=== PATIENT | female | born 1995 | race Caucasian/White ===

== ENCOUNTER 2017-01-18 20:37 | Outpatient (CLI) | payer MEDICAID ==
[~2017-01-18] VITALS: Ht 157.5 cm; Wt 77.1 kg
[~2017-01-18 20:37] MED LIST: METO10TA92 PO
[2017-01-18 20:58] VITALS: Ht 157.5 cm; Wt 77.1 kg
[2017-01-18] MEDS ORDERED: PREN1TAB79 PO (20:58)
[2017-01-18 20:59] VITALS: BP 100/65; PULSE 76; RESP 18
[2017-01-18] MEDS ORDERED: TERBUTALINE 1 MG/ML INJ SC ONE (21:30)
[2017-01-18] MEDS ORDERED: LACTATED RINGER'S 1,000 ML IV ONE (21:30)
[2017-01-18] MEDS ORDERED: LACTATED RINGER'S 1,000 ML IV* SCH (22:00)
[2017-01-18 22:01] LABS: ADD SCAN DIFF NO
[2017-01-18 22:04] LABS: BASOPHILS % 0.2 % (0.0-2.0); EOSINOPHILS # 0.1 10^3/ul (0.0-0.5); HEMATOCRIT 29.8 % (37.0-47.0); HEMOGLOBIN 10.1 g/dl (12.0-16.0); LYMPHOCYTES # 1.8 10^3/ul (0.8-2.9); LYMPHOCYTES % 20.4 % (15.0-51.0); MEAN CORPUSCULAR HEMOGLOBIN 29.4 pg (29.0-33.0); MEAN CORPUSCULAR HGB CONC 33.9 g/dl (32.0-37.0); MEAN CORPUSCULAR VOLUME 86.6 fl (82.0-101.0); MEAN PLATELET VOLUME 11.6 fl (7.4-10.4); MONOCYTE # 0.5 10^3/ul (0.3-0.9); MONOCYTES % 5.5 % (0.0-11.0); NEUTROPHIL # 6.4 10^3/ul (1.6-7.5); NEUTROPHILS % 72.3 % (39.0-77.0); PLATELET COUNT 334 10^3/UL (140-415); RED BLOOD COUNT 3.44 10^6/ul (4.20-5.40); RED CELL DISTRIBUTION WIDTH 12.7 % (11.5-14.5); WHITE BLOOD COUNT 8.9 10^3/ul (4.8-10.8)
[2017-01-18 22:05] LABS: ADD UMIC YES; URINE BILIRUBIN (Dip) NEGATIVE (NEGATIVE); URINE BLOOD (Dip) NEGATIVE (NEGATIVE); URINE COLOR LT. YELLOW (YELLOW); URINE GLUCOSE (Dip) NEGATIVE (NEGATIVE); URINE KETONES (Dip) NEGATIVE (NEGATIVE); URINE LEUKOCYTE ESTERASE (Dip) 1+ (NEGATIVE); URINE NITRITE (Dip) POSITIVE (NEGATIVE); URINE TOTAL PROTEIN (Dip) NEGATIVE (NEGATIVE); URINE UROBILINOGEN (Dip) 0.2 E.U./dL (0.1-1.0)
--- NOTE | 2017-01-18 22:31 | HP ---
Date/Time of Note Date/Time of Note DATE: 01/18/17 TIME: 22:28 OB - History Hx of Present Free Text/Dictation 21 YO with IUP at 31 weeks c/o UCs every 30 minutes. she reports good FM. she denies VB or LOF per vagina. Obstetrical Complications: None Medical Complications: None Past Family/Social History * Past Medical, Surgical, Family and Obstetric Histories reviewed from chart. OB Admission Exam Vital Signs Vital Signs Vital Signs Date Time Temp Pulse Resp B/P Pulse Ox O2 Delivery O2 Flow Rate FiO2 01/18/17 20:59 98.2 76 18 100/65 Room Air Physical Exam HEENT: WNL Heart: Rhythm Normal Lungs: Clear, Equal Abdomen: WNL Extremities: Normal Reflexes: Normal Cervical Dilatation: None Last 72 hours Lab Results CBC & BMP 01/18/17 21:40 OB Assessment/Plan Other Assessment: very unlikely to be in labor. she has a long and closed cervix on sono and she only reports UCs Q 30 min Other plan: may be discharged home with PTL precautions AARON DIANE MD January 18, 2017 22:31
--- NOTE | 2017-01-18 22:44 | RADRPT ---
PROCEDURE: ULTRASOUND OBSTETRICAL CLINICAL INDICATION: 21-year-old female with contractions for cervical length evaluation. TECHNIQUE: Multiple sonographic images of the pelvis were obtained. The images were reviewed on a PACS workstation. COMPARISON: No prior studies are available for comparison. FINDINGS: The cervix is closed with a length of 5.0 cm measured transvaginally. There is a single viable intra uterine gestation. Cardiac activity is present with 154 beats per minute. There is a vertex present ation. The placenta is posterior. There is no evidence for an abruption or placenta previa. IMPRESSION: 1. Single viable intrauterine gestation with vertex presentation. 2. The cervix is closed and measures approximately 5.0 cm in length. .Hector Yancey MD, Date Time Electronically viewed and signed by .Hector Yancey MD, MD on 01/18/2017 22:44 .M/
[2017-01-18 23:12] LABS: SQUAMOUS EPITHELIAL CELL,UR MODERATE; URINE RBCS 0-2 /HPF (0)
[2017-01-18 23:13] LABS: BACTERIA,URINE FEW
--- NOTE | 2017-01-19 02:57 | TRIAGE ---
OB Triage Datetime Report Generated by CPN: 01/19/2017 02:56 Datetime: 01/18/2017 23:50 Stage of : OB Triage Assessment Type: Triage Datetime: 01/18/2017 23:42 Stage of : OB Triage Labor Evaluation Frequency: Irritability/Occasional Monitor Mode: External Duration (sec)2399: 20-50 Quality: Mild Pattern: Normal: <= 5 Contractions in 10 Minutes Resting Tone Mcdowell: Relaxed Heart Rate FHR Baseline Rate: 130 Monitor Mode: External US FHR Baseline Changes: No Baseline Change Variability: Moderate 6-25 bpm Accelerations: 15X15 Decelerations: None Category: Category I Datetime: 01/18/2017 23:30 Stage of : OB Triage Datetime: 01/18/2017 23:00 Stage of : OB Triage Labor Evaluation Frequency: Irritability/Occasional Monitor Mode: External Duration (sec)2399: 20-50 Quality: Mild Pattern: Normal: <= 5 Contractions in 10 Minutes Resting Tone Mcd[place]: Relaxed Heart Rate FHR Baseline Rate: 130 Monitor Mode: External US FHR Baseline Changes: No Baseline Change Variability: Moderate 6-25 bpm Accelerations: 15X15 Decelerations: None Category: Category I Datetime: 01/18/2017 22:28 Vaginal Exam Dilatation (cms): 0.0 Effacement (%): 0 Station: -4 Exam By: BRENNAN Cortes Membrane Status: Intact Vaginal Bleeding: None Cervix, Consistency: Moderate Cervix, Position: Posterior Datetime: 01/18/2017 22:17 Stage of : OB Triage Datetime: 01/18/2017 22:00 Stage of : OB Triage Labor Evaluation Frequency: Irritability/Occasional Monitor Mode: External Duration (sec)2399: 20-40 Quality: Mild Pattern: Normal: <= 5 Contractions in 10 Minutes Resting Tone Mcdowell: Relaxed Heart Rate FHR Baseline Rate: 130 Monitor Mode: External US Variability: Moderate 6-25 bpm Accelerations: 15X15 Decelerations: None Category: Category I Datetime: 01/18/2017 21:19 Stage of : OB Triage Datetime: 01/18/2017 21:00 Stage of : OB Triage Labor Evaluation Frequency: None noted or palpated Monitor Mode: External Resting Tone Mcdowell: Relaxed Heart Rate FHR Baseline Rate: 135 Monitor Mode: External US Variability: Moderate 6-25 bpm Accelerations: 15X15 Decelerations: None Category: Category I Datetime: 01/18/2017 20:52 EGA: 30.6 Datetime: 01/18/2017 20:51 Stage of : OB Triage Assessment Type: Triage Time of Arrival: 01/18/2017 20:31 Arrived By: Wheelchair Arrived From: Home Chief Complaint: UCs [id number] Movement: Present Contractions: Irregular Time Contractions Began: 01/18/2017 16:00 Contractions: [id number] Rupture of Membranes: Denies Vaginal Bleeding: None Vaginal Discharge: Denies Abdominal Trauma: Not Applicable Patient Complaints: Contractions; Cramping; Back Pain Time Provider Notified: 01/18/2017 21:19 Provider Notified: Initial Plan: EFM x2 Maternal Assessment Level of Consciousness: Fully Conscious DTR's/Clonus: DTRs 2+; No Clonus Headache: Temporal; Bilateral; Frontal Blurred Vision: No Respiratory Effort: Unlabored; Regular Rhythm; Equal Expansion Breath Sounds, Left: Clear and Equal Breath Sounds, Right: Clear and Equal Nausea/Vomiting: Present (Annotations: Nausea only) RUQ Epigastric Pain: Denies Lower Extremities Edema: None Degree: None Upper Extremities Edema: None Degree: None Facial Edema: None Temperature Route: Oral Fall Risk Assessment History of Falling: (0) No Secondary Diagnosis: (0) No Ambulatory Aid: (0) Bedrest/Nurse Assist IV Therapy: (0) No Gait: (0) Normal/Bedrest/Immobile Mental Status: (0) Oriented to Own Ability Fall Score: 0 Fall Risk Score Definition: No Risk: No action required Pain Assessment Pain Scale: 5 Pain Presence: Intermittent Pain Type: Cramping; Contraction Pain Location: Abdomen; Back Pain Relief Measures: Comfort Measures Datetime: 01/18/2017 20:49 Stage of : OB Triage Monitor Mode: External Contraction Comments: Mcdowell applied Comments: EFM applied
== END 2017-01-19 00:05 | disposition home or self-care (01) ==
LOC: OBT 20:37 → L-D 20:39 → OBT 01-19 00:05
PROVIDERS: ATTEND Obstetrics & Gynecology
DX: O62.9 Abnormality of forces of labor, unspecified (principal); Z3A.31 31 weeks gestation of pregnancy
CPT/HCPCS: 76817; 81001; 81003; 85025; J3105; J7120; 36415; 96360; 96361; 96372; G0463

== ENCOUNTER 2017-02-09 21:16 | Outpatient (CLI) | payer MEDICAID ==
[~2017-02-09] VITALS: Ht 165.1 cm; Wt 77.5 kg
[~2017-02-09 21:16] MED LIST changes: -METO10TA92 PO; +PREN1TAB79 PO
[2017-02-09 21:36] VITALS: BP 117/68; PULSE 66; RESP 18; Ht 165.1 cm; Wt 77.5 kg
--- NOTE | 2017-02-09 22:32 | RADRPT ---
PROCEDURE: Obstetrical ultrasound. CLINICAL INDICATION: , evaluation. Pelvic pain. TECHNIQUE: Transabdominal sonographic images of the pelvis are obtained. COMPARISON: 01/18/2017 FINDINGS: Single intrauterine gestation. There is a cephalic presentation. Measurements were made in order to determine age. The results are as follows: BPD = 8.64 cm HC = 30.96 cm AC = 31.78 cm FL = 6.51 cm Heart rate = 161 beats per minute The placenta is right lateral. There is no evidence for an abruption or placenta previa. Ovaries are not visualized. IMPRESSION: Single intrauterine gestation of approximately 34 weeks 5 days by ultrasound criteria. [place] estimated weight = 2552 g; 71 percentile for gestational age of 34 weeks 0 days. RPTAT: AADD .Jak Gonzales MD, Date Time Electronically viewed and signed by .Jak Gonzales MD, MD on 02/09/2017 22:32 .B/
--- NOTE | 2017-02-09 22:35 | RADRPT ---
PROCEDURE: OB ultrasound for biophysical profile CLINICAL INDICATION: Biophysical profile. . TECHNIQUE: Multiple sonographic images of the pelvis were obtained. Transabdominal and transvagin al views are obtained. COMPARISON: 01/18/2017 FINDINGS: Single intrauterine gestation. Presentation: Cephalic. Placenta: Right lateral No evidence of placental abruption. No evidence of placenta previa. breathing movement = 2/2 tone = 2/2 motion = 2/2 KHADIJAH = 2/2 KHADIJAH = 15.1 cm heart rate: 132 beats per minute Cervix is closed as visualized transvaginally measuring 4.17 cm. IMPRESSION: Single intrauterine gestation. Biophysical profile 04/14 RPTAT: AADD .Jak Gonzales MD, MD Date Time Electronically viewed and signed by .Jak Gonzales MD, on 02/09/2017 22:35 .B/
[2017-02-09] MEDS: LACTATED RINGER'S 1,000 ML IV SCH (23:39)
[2017-02-10] LABS: ADD UMIC YES; URINE BILIRUBIN (Dip) NEGATIVE (NEGATIVE); URINE BLOOD (Dip) TRACE (NEGATIVE); URINE COLOR LT. YELLOW (YELLOW); URINE GLUCOSE (Dip) NEGATIVE (NEGATIVE); URINE KETONES (Dip) TRACE (NEGATIVE); URINE LEUKOCYTE ESTERASE (Dip) 3+ (NEGATIVE); URINE NITRITE (Dip) NEGATIVE (NEGATIVE); URINE TOTAL PROTEIN (Dip) TRACE (NEGATIVE); URINE UROBILINOGEN (Dip) 0.2 E.U./dL (0.1-1.0)
[2017-02-10] MEDS: LACTATED RINGER'S 1,000 ML IV SCH (00:07)
[2017-02-10] MEDS ORDERED: TERBUTALINE 1 MG/ML INJ SC ONE ×2 (00:30→01:00)
[2017-02-10 00:32] LABS: BACTERIA,URINE MODERATE; SQUAMOUS EPITHELIAL CELL,UR MANY; URINE RBCS 0-2 /HPF (0)
--- NOTE | 2017-02-10 02:34 | PN ---
Date/Time of Note Date/Time of Note DATE: 02/10/17 TIME: 02:29 OB Subjective Subjective Subjective 21Year-old with SIUP at 34 1/7 weeks presents with a chief complaint of ucs. She has been receiving her care with Dr. Enriquez. She states good movement. She denies nausea, vomiting, shortness of breath, chest pain, and abdominal pain between contractions, headache, visual changes, vaginal bleeding or LOF. OB Objective Objective Objective General: Patient appears well, alert and oriented, NAD, appropriate mood and affect ABD: gravid, soft, non-tender. Back: No CVA tenderness (B/L) LE: No clubbing, cyanosis, edema, thigh or calf tenderness bilaterally FHT: 135 bpm , moderate variability with acceleration, no deceleration-category I Contractions: Q 3-5 min initially, resolved before discharging home OB Assessment/Plan Other plan: 21Year-old with SIUP at 34 1/7 weeks with PTC. She received IVF and 2 dose of terbutaline. UCS stopped. FHR: No sign of metabolic acidosis- Category I Reactive NST. U/A and U/C done. Symptoms and sign of labor, preeclampsia, kick count discussed with patient, she voiced understanding. All of her questions answered. Patient was discharged home in stable condition with the appropriate discharge instructions provided. I would like patient to have close follow-up with her primary physician or outpatient clinic in 1-2 days or return to the ER for worsening symptoms or any other urgent concerns. DEEPIKA RAMIREZ Feb 10, 2017 02:34
[2017-02-10] MEDS ORDERED: LACTATED RINGER'S 1,000 ML IV SCH (23:17)
== END 2017-02-10 01:46 | disposition home or self-care (01) ==
LOC: L-D 21:16 → OBT 21:16
PROVIDERS: ATTEND Obstetrics & Gynecology
DX: O60.03 Preterm labor without delivery, third trimester (principal); R10.2 Pelvic and perineal pain; Z3A.34 34 weeks gestation of pregnancy
CPT/HCPCS: 36415; 76815; 76817; 76818; 81001; 84112; 87086; 96360; 96361; 96372; J3105; J7120; Z7500; G0463

== ENCOUNTER 2017-03-12 02:05 | Outpatient (CLI) | payer MEDICAID ==
[~2017-03-12] VITALS: Ht 157.5 cm; Wt 80.3 kg
[2017-03-12 02:34] VITALS: BP 131/87; PULSE 75; RESP 18
[2017-03-12] MEDS ORDERED: FERR134T PO (02:37)
[2017-03-12] MEDS ORDERED: CALC600T5 PO (02:37)
[2017-03-12 03:07] LABS: ADD UMIC YES; UR ASCORBIC ACID NEGATIVE (NEGATIVE); UR BILIRUBIN (Dip) NEGATIVE (NEGATIVE); UR BLOOD (Dip) NEGATIVE (NEGATIVE); UR CLARITY SLIGHTLY CLOUDY (CLEAR); UR COLOR STRAW (YELLOW); UR GLUCOSE (Dip) NEGATIVE (NEGATIVE); UR KETONES (Dip) NEGATIVE (NEGATIVE); UR LEUKOCYTE ESTERASE (Dip) 3+ Leu/ul (NEGATIVE); UR NITRITE (Dip) NEGATIVE (NEGATIVE); UR RBC 2 /HPF (0-5); UR SPECIFIC GRAVITY (Dip) 1.002 (1.003-1.030); UR SQUAMOUS EPITHELIAL CELL FEW /HPF (FEW); UR TOTAL PROTEIN (Dip) NEGATIVE (NEGATIVE); UR UROBILINOGEN (Dip) NEGATIVE (NEGATIVE)
[2017-03-12 03:14] LABS: ADD SCAN DIFF NO
[2017-03-12 03:17] LABS: BASOPHILS % 0.3 % (0.0-2.0); EOSINOPHILS # 0.1 10^3/ul (0.0-0.5); EOSINOPHILS % 0.8 % (0.0-7.0); HEMATOCRIT 29.4 % (37.0-47.0); HEMOGLOBIN 9.4 g/dl (12.0-16.0); LYMPHOCYTES # 1.9 10^3/ul (0.8-2.9); LYMPHOCYTES % 27.9 % (15.0-51.0); MEAN CORPUSCULAR HEMOGLOBIN 26.3 pg (29.0-33.0); MEAN CORPUSCULAR VOLUME 82.4 fl (82.0-101.0); MONOCYTE # 0.4 10^3/ul (0.3-0.9); MONOCYTES % 6.2 % (0.0-11.0); NEUTROPHIL # 4.3 10^3/ul (1.6-7.5); NEUTROPHILS % 64.3 % (39.0-77.0); PLATELET COUNT 288 10^3/UL (140-415); RED BLOOD COUNT 3.57 10^6/ul (4.20-5.40); RED CELL DISTRIBUTION WIDTH 14.9 % (11.5-14.5); WHITE BLOOD COUNT 6.6 10^3/ul (4.8-10.8)
[2017-03-12 03:29] LABS: INR 0.87; PROTIME 11.8 Sec (12.2-14.2); PT RATIO 0.9
[2017-03-12 03:30] LABS: PARTIAL THROMBOPLASTIN TIME 27.3 Sec (25.0-35.0)
--- NOTE | 2017-03-12 03:42 | RADRPT ---
PROCEDURE: Obstetrical ultrasound, limited. CLINICAL INDICATION: Pelvic pain. TECHNIQUE: Multiple sonographic images of the pelvis were obtained using transabdominal technique . Images were obtained with najera scale and color Doppler. The images were reviewed on a PACS works Proactive Comfortion. COMPARISON: 02/09/2017. FINDINGS: There is a single living intrauterine gestation with the fetus in a vertex presentation. hear t tones of 161 beats per minute are identified. The placenta is right lateral in location, grade 2. There is no evidence of placenta previa or abruption. Measurements were made in order to determine age. The results are as follows: BPD =9.67 cm HC =34.07 cm AC =35.89 cm FL =7.41 cm. Estimated gestational age of approximately 39 weeks and 1 day. The estimated date of delivery is 03/18/2017. The EFW = 3750 +/- 563 grams. Estimated weight percentage equals 84.4%. IMPRESSION: Single viable intrauterine gestation of approximately 39 weeks and 1 day, with an ultrasound CARROLL of 03/18/2017. .Lázaro Cardoso MD, MD Date Time Electronically viewed and signed by .Lázaro Cardoso MD, MD on 03/12/2017 03:41 .T/
--- NOTE | 2017-03-12 03:48 | RADRPT ---
PROCEDURE: Biophysical profile. CLINICAL INDICATION: Pelvic pain. TECHNIQUE: Multiple sonographic images of the pelvis were obtained with transabdominal technique. COMPARISON: 02/09/2017. FINDINGS: There is a single living intrauterine gestation with the fetus in a vertex position. The placenta i s right lateral in location, grade II. heart tones of 132 beats per minute are identified. Th ere is normal amniotic fluid volume with an KHADIJAH of 10.8 cm. breathing movements = 2 Gross body movements = 2 tone = 2 Qualitative AFV = 2 IMPRESSION: Biophysical profile 8 out of 8. .Lázaro Cardoso MD, Date Time Electronically viewed and signed by .Lázaro Cardoso MD, on 03/12/2017 03:47 .T/
[2017-03-12 03:52] LABS: ALBUMIN 4.1 g/dl (3.3-4.9); ALBUMIN/GLOBULIN RATIO 1.41; CALCIUM 8.9 mg/dl (8.4-10.2); CREATININE 0.51 mg/dl (0.44-1.00); POTASSIUM 3.9 mmol/L (3.5-5.1); URIC ACID 5.8 mg/dl (3.1-7.9)
[2017-03-12] MEDS ORDERED: ACETAMINOPHEN 500 MG TAB PO ONE (05:07)
--- NOTE | 2017-03-12 08:09 | TRIAGE ---
OB Triage Datetime Report Generated by CPN: 03/12/2017 08:09 Datetime: 03/12/2017 07:08 Assessment Type: Triage Maternal Assessment Level of Consciousness: Fully Conscious DTR's/Clonus: DTRs 2+; No Clonus Headache: Denies Blurred Vision: No Respiratory Effort: Unlabored; Regular Rhythm; Equal Expansion Breath Sounds, Left: Clear and Equal Breath Sounds, Right: Clear and Equal Nausea/Vomiting: Denies RUQ Epigastric Pain: Denies Lower Extremities Edema: None Degree: None Upper Extremities Edema: None Degree: None Facial Edema: None Fall Risk Assessment History of Falling: (0) No Secondary Diagnosis: (0) No Ambulatory Aid: (0) Bedrest/Nurse Assist IV Therapy: (0) No Gait: (0) Normal/Bedrest/Immobile Mental Status: (0) Oriented to Own Ability Fall Score: 0 Fall Risk Score Definition: No Risk: No action required Datetime: 03/12/2017 06:09 Stage of : OB Triage Labor Evaluation Frequency: 3-5 Monitor Mode: External Duration (sec)2399: 60-90 Quality: Moderate Pattern: Normal: <= 5 Contractions in 10 Minutes Resting Tone [place]: Relaxed Heart Rate FHR Baseline Rate: 130 Monitor Mode: External US FHR Baseline Changes: No Baseline Change Variability: Moderate 6-25 bpm Accelerations: 15X15 Decelerations: None Category: Category I Pain Assessment Pain Scale: 6 Pain Presence: Intermittent Pain Type: Contraction Pain Location: Abdomen Datetime: 03/12/2017 05:29 Heart Rate FHR Baseline Rate: 145 Monitor Mode: External US FHR Baseline Changes: No Baseline Change Variability: Moderate 6-25 bpm Accelerations: 15X15 Datetime: 03/12/2017 04:50 Stage of : OB Triage Monitor Mode: External Quality: Moderate Pattern: Normal: <= 5 Contractions in 10 Minutes Resting Tone [place]: Relaxed Heart Rate FHR Baseline Rate: 135 Monitor Mode: External US Variability: Moderate 6-25 bpm Accelerations: 15X15 Decelerations: None Category: Category I Vaginal Exam Dilatation (cms): 0.0 Exam By: Dr West Membrane Status: Intact Vaginal Bleeding: None Cervix, Consistency: Soft Cervix, Position: Posterior Presentation 'A': Cephalic Datetime: 03/12/2017 03:55 Stage of : OB Triage Monitor Mode: External Quality: Mild Pattern: Normal: <= 5 Contractions in 10 Minutes Resting Tone [place]: Relaxed Heart Rate FHR Baseline Rate: 135 Monitor Mode: External US FHR Baseline Changes: No Baseline Change Variability: Moderate 6-25 bpm Accelerations: 15X15 Decelerations: None Category: Category I Datetime: 03/12/2017 02:53 Stage of : OB Triage Datetime: 03/12/2017 02:50 Stage of : OB Triage Labor Evaluation Frequency: 8-11 Monitor Mode: External Duration (sec)2399: 60 Quality: Moderate Pattern: Normal: <= 5 Contractions in 10 Minutes Resting Tone [place]: Relaxed Heart Rate FHR Baseline Rate: 130 Monitor Mode: External US FHR Baseline Changes: No Baseline Change Variability: Moderate 6-25 bpm Accelerations: 15X15 Decelerations: Variable Category: Category II Vaginal Exam Dilatation (cms): 0.0 Effacement (%): 50 Station: -3 Exam By: E Macho Membrane Status: Intact Vaginal Bleeding: None Cervix, Consistency: Soft Cervix, Position: Posterior Datetime: 03/12/2017 02:25 Time of Arrival: 03/12/2017 02:07 EGA: 38.3 Arrived By: Wheelchair Arrived From: Home Chief Complaint: w/ hx c/s x1 and x1 w/ c/o ucs, nausea, and DICKEY Movement: Present Contractions: Regular Time Contractions Began: 03/11/2017 10:00 Contractions: Q5 Rupture of Membranes: Denies Vaginal Bleeding: None Vaginal Discharge: Denies Recent Sexual Intercouse: Denies Abdominal Trauma: Not Applicable Patient Complaints: Contractions; Headache; Nausea Time Provider Notified: 03/12/2017 02:53 Provider Notified: Dr West Initial Plan: EFM, SVE, PIH PANEL, BPP/EFW Datetime: 02/10/2017 01:51 Stage of : OB Triage Datetime: 02/10/2017 00:59 Labor Evaluation Frequency: IRREGULAR Monitor Mode: External Duration (sec)2399: 50-100 Quality: Mild Pattern: Normal: <= 5 Contractions in 10 Minutes Resting Tone [place]: Relaxed Heart Rate FHR Baseline Rate: 135 Monitor Mode: External US FHR Baseline Changes: No Baseline Change Variability: Moderate 6-25 bpm Accelerations: 15X15 Decelerations: None Category: Category I Datetime: 02/10/2017 00:00 Labor Evaluation Frequency: 2-3 Monitor Mode: External Duration (sec)2399: 100 Quality: Mild Pattern: Normal: <= 5 Contractions in 10 Minutes Resting Tone [place]: Relaxed Heart Rate FHR Baseline Rate: 125 FHR Baseline Changes: No Baseline Change Variability: Moderate 6-25 bpm Accelerations: 15X15 Decelerations: None Category: Category I Datetime: 02/09/2017 23:00 Labor Evaluation Frequency: 3-4 Monitor Mode: External Duration (sec)2399: 60-100 Quality: Mild Pattern: Normal: <= 5 Contractions in 10 Minutes Resting Tone [place]: Relaxed Heart Rate FHR Baseline Rate: 125 FHR Baseline Changes: No Baseline Change Variability: Moderate 6-25 bpm Accelerations: 15X15 Decelerations: None Category: Category I Datetime: 02/09/2017 22:37 Vaginal Exam Dilatation (cms): 0.0 Effacement (%): 0 Station: -3 Exam By: Yossi JOSE RN Vaginal Bleeding: None Cervix, Consistency: Firm Cervix, Position: Posterior Datetime: 02/09/2017 22:00 Labor Evaluation Frequency: 3-4 Monitor Mode: External Duration (sec)2399: 40-80 Quality: Mild Pattern: Normal: <= 5 Contractions in 10 Minutes Resting Tone [place]: Relaxed Heart Rate FHR Baseline Rate: 125 FHR Baseline Changes: No Baseline Change Variability: Moderate 6-25 bpm Accelerations: 15X15 Decelerations: None Category: Category I Datetime: 02/09/2017 21:30 Stage of : OB Triage Time of Arrival: 02/09/2017 21:30 EGA: 34.0 Arrived By: Wheelchair Arrived From: Home Chief Complaint: CONTRACTIONS Movement: Present Rupture of Membranes: Unsure Vaginal Bleeding: None Recent Sexual Intercouse: Denies Abdominal Trauma: Not Applicable Patient Complaints: None (Annotations: Data stored by CPN on behalf of user) Time Provider Notified: 02/09/2017 23:15 Provider Notified: HADADIAN Initial Plan: CALL COREY BETANCUR Maternal Assessment Level of Consciousness: Fully Conscious DTR's/Clonus: DTRs 2+; No Clonus Headache: Denies Blurred Vision: No Respiratory Effort: Unlabored; Regular Rhythm; Equal Expansion Breath Sounds, Left: Clear and Equal Breath Sounds, Right: Clear and Equal Nausea/Vomiting: Denies RUQ Epigastric Pain: Denies Lower Extremities Edema: None Degree: None Upper Extremities Edema: None Degree: None Facial Edema: None Temperature Route: Oral Fall Risk Assessment History of Falling: (0) No Secondary Diagnosis: (0) No Ambulatory Aid: (0) Bedrest/Nurse Assist IV Therapy: (0) No Gait: (0) Normal/Bedrest/Immobile Mental Status: (0) Oriented to Own Ability Fall Score: 0 Fall Risk Score Definition: No Risk: No action required Monitor Mode: External Monitor Mode: External US Pain Assessment Pain Scale: 5 Pain Presence: Intermittent Pain Type: Contraction Pain Location: Abdomen; Back Datetime: 01/18/2017 20:52 EGA: 30.6 Datetime: 01/18/2017 20:51 Fall Score: 0 Fall Risk Score Definition: No Risk: No action required
--- NOTE | 2017-03-12 08:14 | PN ---
Triage Information Date/Time March 12, 2070 OB triage consult Weeks of Gestation This patient is a 21 years old 3 para 2 who had 1 spontaneous vaginal delivery and one . Her estimated date of confinement March 23, 2017 which makes her 38 weeks and 3 days She came to OB triage complaining of contractions nausea and headaches In reviewing her past history as I mentioned she had 2 spontaneous vaginal delivery. Her blood type is O+ GBS positive rubella positive ,hepatic surface antigen and HIV RPR chlamydia and gonorrhea were negative On examination she is a well-developed well-nourished lady at term Her general vital signs are normal except for slightly elevated blood pressure when she came in her Blood pressure was 131/87 and 121/74 , eventually 119/80, pulse rate 75 ,respiration 18 and temperature 97.9 Her abdomen was soft she was having only occasional contractions, heart tone was normal with good variability occasional acceleration no deceleration. On pelvic examination cervix was closed about 50% effaced at -3 station and intact membrane , 4 hours later on tepeated pelvic exam d the findings were unchanged Laboratory Tests Test 03/12/17 02:50 03/12/17 03:03 Urine Color STRAW Urine Clarity SLIGHTLY CLOUDY Urine pH 7.0 Urine Specific [place] 1.002 Urine Ketones NEGATIVEmg/dL Urine Nitrite NEGATIVEmg/dL Urine Bilirubin NEGATIVEmg/dL Urine Urobilinogen NEGATIVEmg/dL Urine Leukocyte Esterase 3+Margo/ul Urine Microscopic RBC 2/HPF Urine Microscopic WBC 15/HPF Urine Squamous Epithelial Cells FEW/HPF Urine Hemoglobin NEGATIVEmg/dL Urine Glucose NEGATIVEmg/dL Urine Total Protein NEGATIVEmg/dl White Blood Count 6.610^3/ul Red Blood Count 3.5710^6/ul Hemoglobin 9.4g/dl Hematocrit 29.4% Mean Corpuscular Volume 82.4fl Mean Corpuscular Hemoglobin 26.3pg Mean Corpuscular Hemoglobin Concent 32.0g/dl Red Cell Distribution Width 14.9% Platelet Count 43705^3/UL Mean Platelet Volume 12.0fl Neutrophils % 64.3% Lymphocytes % 27.9% Monocytes % 6.2% Eosinophils % 0.8% Basophils % 0.3% Nucleated Red Blood Cells % 0.0/100WBC Neutrophils # 4.310^3/ul Lymphocytes # 1.910^3/ul Monocytes # 0.410^3/ul Eosinophils # 0.110^3/ul Basophils # 0.010^3/ul Nucleated Red Blood Cells # 0.010^3/ul Prothrombin Time 11.8Sec Prothrombin Time Ratio 0.9 INR International Normalized Ratio 0.87 Activated Partial Thromboplast Time 27.3Sec Sodium Level 134mmol/L Potassium Level 3.9mmol/L Chloride Level 105mmol/L Carbon Dioxide Level 19mmol/L Anion Gap 14 Blood Urea Nitrogen 8mg/dl Creatinine 0.51mg/dl Glucose Level 81mg/dl Uric Acid 5.8mg/dl Calcium Level 8.9mg/dl Total Bilirubin 0.0mg/dl Direct Bilirubin 0.00mg/dl Indirect Bilirubin 0.0mg/dl Aspartate Amino Transf (AST/SGOT) 58IU/L Alanine Aminotransferase (ALT/SGPT) 39IU/L Alkaline Phosphatase 168IU/L Total Protein 7.0g/dl Albumin 4.1g/dl Globulin 2.90g/dl Albumin/Globulin Ratio 1.41 Current Medications Medications (Trade) Dose Ordered Sig/[place] Route PRN Reason Start Time Stop Time Status Last Admin Dose Admin Acetaminophen (Tylenol Tab) 1,000 mg ONCE ONCE PO 03/12/17 05:07 03/12/17 05:09 DC 03/12/17 05:29 1,000 MG : 2 Para: 1 Objective Vital Signs Date Time Temp Pulse Resp B/P Pulse Ox O2 Delivery O2 Flow Rate FiO2 03/12/17 02:34 97.9 75 18 131/87 Room Air Exam On laboratory studies; her urinalysis were basically normal except for few leukocyte Estrace of 3+,. PT and PTT were normal .electrolytes and liver function tests were basically normal except for slightly elevated SGOT. On CBC exam she was somewhat anemic with hemoglobin of 9.4 hematocrit of a 29.4 platelet was normal 280,000 Results/Medications Result Diagram: 03/12/17 0303 03/12/17 0303 Results 24 hrs Laboratory Tests Test 03/12/17 02:50 03/12/17 03:03 Urine Color STRAW Urine Clarity SLIGHTLY CLOUDY A Urine pH 7.0 Urine Specific [place] 1.002 L Urine Ketones NEGATIVE Urine Nitrite NEGATIVE Urine Bilirubin NEGATIVE Urine Urobilinogen NEGATIVE Urine Leukocyte Esterase 3+ H Urine Microscopic RBC 2 Urine Microscopic WBC 15 H Urine Squamous Epithelial Cells FEW Urine Hemoglobin NEGATIVE Urine Glucose NEGATIVE Urine Total Protein NEGATIVE White Blood Count 6.6 # Red Blood Count 3.57 L Hemoglobin 9.4 L Hematocrit 29.4 L Mean Corpuscular Volume 82.4 Mean Corpuscular Hemoglobin 26.3 L Mean Corpuscular Hemoglobin Concent 32.0 Red Cell Distribution Width 14.9 H Platelet Count 288 Mean Platelet Volume 12.0 H Neutrophils % 64.3 Lymphocytes % 27.9 Monocytes % 6.2 Eosinophils % 0.8 Basophils % 0.3 Nucleated Red Blood Cells % 0.0 Neutrophils # 4.3 Lymphocytes # 1.9 Monocytes # 0.4 Eosinophils # 0.1 Basophils # 0.0 Nucleated Red Blood Cells # 0.0 Prothrombin Time 11.8 L Prothrombin Time Ratio 0.9 INR International Normalized Ratio 0.87 Activated Partial Thromboplast Time 27.3 Sodium Level 134 L Potassium Level 3.9 Chloride Level 105 Carbon Dioxide Level 19 L Anion Gap 14 Blood Urea Nitrogen 8 Creatinine 0.51 Glucose Level 81 Uric Acid 5.8 Calcium Level 8.9 Total Bilirubin 0.0 L Direct Bilirubin 0.00 Indirect Bilirubin 0.0 Aspartate Amino Transf (AST/SGOT) 58 H Alanine Aminotransferase (ALT/SGPT) 39 Alkaline Phosphatase 168 H Total Protein 7.0 Albumin 4.1 Globulin 2.90 Albumin/Globulin Ratio 1.41 Imaging Results On ultrasound study the report was a single living intrauterine gestation in vertex presentation. heart tones 161. placenta right lateral location grade 2 .estimated gestational age was 39 weeks and 1 day..estimated weight was 3750 and estimated weight percentage percentage castro was 84.4% .her biophysical profile was 8/8 with KHADIJAH of 10.8 Assessment/Plan Disposition.. Patient discharged home and recommended to do the kick count and in case of vaginal bleeding, more contractions to return to the hospital end of dictation thank you ARJUN SHARIF MD Mar 12, 2017 08:14
== END 2017-03-12 08:15 | disposition home or self-care (01) ==
LOC: OBT 02:05 → L-D 02:05 → OBT 08:15
PROVIDERS: ATTEND Obstetrics & Gynecology
DX: O62.9 Abnormality of forces of labor, unspecified (principal); O21.0 Mild hyperemesis gravidarum; Z3A.38 38 weeks gestation of pregnancy; O26.893 Other specified pregnancy related conditions, third trimester; R51 Headache
CPT/HCPCS: 36415; 76815; 76818; 80053; 81001; 84560; 85025; 85610; 85730; Z7500; Z7610; G0463

== ENCOUNTER 2017-03-23 07:25 | Inpatient (IN) | payer MEDICAID ==
[~2017-03-23] VITALS: Ht 157.5 cm; Wt 80.3 kg
[~2017-03-23 07:25] MED LIST changes: +CALC600T5 PO; +FERR134T PO
[2017-03-24 14:53] VITALS: Ht 157.5 cm; Wt 80.3 kg
[2017-03-24] MEDS ORDERED: METHYLERGONOVINE 0.2 MG INJ IM PRN ×2 (15:00→22:30)
[2017-03-24] MEDS ORDERED: OXYTOCIN 30 UNITS/LR 500 ML IV PRN ×2 (15:00→22:30)
[2017-03-24] MEDS ORDERED: MISOPROSTOL 200 MCG TAB PR PRN ×2 (15:00→22:30)
[2017-03-24] MEDS ORDERED: CARBOPROST 250 MCG INJ IM PRN ×2 (15:00→22:30)
[2017-03-24] MEDS ORDERED: CEFAZOLIN 2 GM/50 ML (PMX) 50 ML IV SCH ×2 (15:00→22:30)
[2017-03-24] MEDS ORDERED: OXYTOCIN 30 UNITS/LR 500 ML IV SCH (15:00)
[2017-03-24 15:16] LABS: ADD SCAN DIFF NO
[2017-03-24] MEDS: LACTATED RINGER'S 1,000 ML IV SCH ×3 (15:16→23:51)
[2017-03-24 15:19] LABS: BASOPHILS % 0.3 % (0.0-2.0); EOSINOPHILS % 0.4 % (0.0-7.0); HEMATOCRIT 32.6 % (37.0-47.0); HEMOGLOBIN 10.4 g/dl (12.0-16.0); LYMPHOCYTES # 1.7 10^3/ul (0.8-2.9); LYMPHOCYTES % 22.6 % (15.0-51.0); MEAN CORPUSCULAR HEMOGLOBIN 26.2 pg (29.0-33.0); MEAN CORPUSCULAR HGB CONC 31.9 g/dl (32.0-37.0); MEAN CORPUSCULAR VOLUME 82.1 fl (82.0-101.0); MEAN PLATELET VOLUME 12.5 fl (7.4-10.4); MONOCYTE # 0.4 10^3/ul (0.3-0.9); MONOCYTES % 4.9 % (0.0-11.0); NEUTROPHIL # 5.2 10^3/ul (1.6-7.5); NEUTROPHILS % 71.3 % (39.0-77.0); PLATELET COUNT 334 10^3/UL (140-415); RED BLOOD COUNT 3.97 10^6/ul (4.20-5.40); RED CELL DISTRIBUTION WIDTH 15.5 % (11.5-14.5); WHITE BLOOD COUNT 7.3 10^3/ul (4.8-10.8)
[2017-03-24 15:33] LABS: INR 0.89; PT RATIO 0.9
[2017-03-24 15:34] LABS: PARTIAL THROMBOPLASTIN TIME 27.2 Sec (25.0-35.0)
[2017-03-24] MEDS ORDERED: METOCLOPRAMIDE 10 MG INJ ONE (18:03)
[2017-03-24] MEDS ORDERED: FENTAnyl 50 MCG/ML VIAL ONE (18:03)
[2017-03-24] MEDS ORDERED: morphine SULFATE/PF (10 MG/10 ML) INJ ONE (18:03)
[2017-03-24] MEDS ORDERED: PHENYLephrine (100 MCG/ML) 5ML SYG ONE (18:03)
[2017-03-24] MEDS ORDERED: OXYTOCIN 10 UNIT INJ ONE (18:03)
[2017-03-24] MEDS ORDERED: EPHEDrine SULFATE 50 MG/5 ML SYG IV PRN (19:00)
[2017-03-24] MEDS ORDERED: DIPHENHYDRAMINE 50 MG INJ IV PRN ×2 (19:00)
[2017-03-24] MEDS ORDERED: hydrALAzine 20 MG INJ IV PRN (19:00)
[2017-03-24] MEDS ORDERED: FENTAnyl 50 MCG/ML VIAL IV PRN ×3 (19:00)
[2017-03-24] MEDS ORDERED: TRIMETHOBENZAMIDE 100 MG/ML VIAL IM PRN (19:00)
[2017-03-24] MEDS ORDERED: HYDROmorphONE (0.2 MG/ML) 10ML SYG IV PRN ×3 (19:00)
[2017-03-24] MEDS ORDERED: MEPERIDINE 25 MG INJ IV PRN (19:00)
[2017-03-24] MEDS ORDERED: NALOXONE (0.4 MG/ML) INJ IV PRN (19:00)
[2017-03-24] MEDS ORDERED: OXYCODONE/ACETAMINOPHEN (5/325) TAB PO PRN ×2 (19:00)
[2017-03-24] MEDS ORDERED: LABETALOL HCL 20MG INJ IV PRN (19:00)
[2017-03-24] MEDS ORDERED: ONDANSETRON 4 MG INJ IV PRN ×2 (19:00)
[2017-03-24] MEDS ORDERED: FENTAnyl 2MCG/ML-ROPIV 0.2% 100 ML BAG EPI SCH (19:00)
[2017-03-24] MEDS ORDERED: morphine 2 MG INJ IV PRN ×2 (19:00)
[2017-03-24] MEDS ORDERED: MIDAZOLAM 1 MG/ML 2 ML INJ IV PRN (19:00)
[2017-03-24] MEDS ORDERED: DEXAMETHASONE 4 MG/ML 1 ML INJ ONE (19:02)
--- NOTE | 2017-03-24 19:37 | HP ---
Date/Time of Note Date/Time of Note DATE: 03/24/17 TIME: 19:32 OB - History Hx of Present Free Text/Dictation admitted at 40+ weeks gestation requesting repeat C/S Last Menstrual Period: Jun 16, 2016 Estimated Due Date: Mar 23, 2017 : 3 Para: 2 Care: Good Care Ultrasounds: Normal mid trimester US Obstetrical Complications: None Medical Complications: None Other Concerns: Previous section Past Family/Social History * Past Medical, Surgical, Family and Obstetric Histories reviewed from chart. Blood Type: O+ Rubella: immune RPR/VDRL: Negative GBS Status: Unknown HBsAG: Negative OB Admission Exam Physical Exam HEENT: WNL Heart: Rhythm Normal Lungs: Clear, Equal Abdomen: WNL Extremities: Normal Reflexes: Normal Cervical Dilatation: None Effacement: 0% Station: -3 Membranes: Intact Heart Rate: 130's Accelerations: Accelerations Present Decelerations: No Decelerations Varibility: Marked Contractions on Admission: 6-10 Minutes Apart Last 72 hours Lab Results CBC & BMP 03/24/17 14:40 OB Assessment/Plan Reason for admission: section Other Assessment: Term gestation Previous Other plan: Repeat per request JUJU TOMLIN MD Mar 24, 2017 19:36
--- NOTE | 2017-03-24 19:40 | OPR ---
Operative Report Planned Procedure Procedure date Mar 24, 2017 Procedure(s) repeat C/S Performed by: JUJU TOMLIN MD Assisting provider: ARJUN SHARIF MD Anesthesiologist: Shaun Garcia M.D. Pre-procedure diagnosis Term gestation Previous Anesthesia Type: spinal Procedure Description Under satisfactory anaesthesia a Pfannenstiel incision was made two fingerbreadth above and parallel to the symphysis of pubis around the previous scar and previous scar was removed Incision was extended laterally to the border of the Recti muscles on either sides. Incision was carried down with sharp and blunt dissection until fascia was reached. Anterior Recti muscle fascia was incised in mid portion and incision extended laterally to the border of skin incision. Fascia was mobilized from muscle superiorly and Recti muscles were from midline using sharp and blunt dissection. Peritoneum was visualized; Avoiding bowel and bladder it was incised . Incision was extended superiorly and inferiorly. Bladder blade was placed. Posterior peritoneum covering the lower segment of the uterus and lower segment of the uterus were incised.Low transverse uterine incision was made on lower segment of the uterus. Incision extended laterally to the border of Round Lig. on either sides and baby was delivered from OT. position . Amniotic fluid appeared clear. Cord blood was obtained and cord had 3 vessels . Placenta was delivered spontaneously and appeared intact and complete. Intrauterine cavity was rubbed with a laparotomy sponge. Uterine incision was closed in 2 layers using running stitches of No1 Monocryl. Hemostasis appeared secure. Ovaries and Fallopian tubes were within normal limits. Announcing needle, lap sponge and instrument count to be correct abdomen was closed in layers as follows: Peritoneum and Recti muscles with running stitches of 20 Vicryl. Fascia with running stitch of No 1 PDS. Subcutaneous tissue with running stitches of 20 Chromic and skin was closed using jeri. Patient tolerated the procedure well and was transferred to [facility] in good condition. Post-Procedure Post-procedure diagnosis Status post Findings: Live Baby Specimen removed: Yes Complications: None Pt Condition post procedure: stable Disposition: PACU Physician Certification I, the undersigned physician, hereby certify that I have discussed the procedure described in this consent form with this patient (or the patient's legal sales representative printing paper), including: * The risk and benefits of the procedure; * Any adverse reactions that may reasonably be expected to occur; * Any alternative efficacious methods of treatment which may be medically viable ; * The potential problems that may occur during recuperation; * Potential for blood transfusion and associated risks/benefits; and * Any research or economic interest I may have regarding this treatment. I further certify that the patient/legally responsible person was encouraged to ask question and that all questions were answered. JUJU TOMLIN MD Mar 24, 2017 19:40
[2017-03-24] MEDS: KETOROLAC 30 MG INJ IV PRN (20:30)
--- NOTE | 2017-03-24 21:22 | DELSUM ---
Delivery Summary A-C Datetime Report Generated by N: 03/24/2017 21:22 DELIVERY PERSONNEL Refrigeration System Installer: Ellen Sequeira MATERNAL INFORMATION Delivery Anesthesia: Spinal Medications in Delivery: SEE ANESTHESIA NOTE Estimated Blood Loss (ml): 600 Placenta Cultured: No Maternal Complications: None Other Maternal Complications: POST DATE (Annotations: Data stored by [facility] on behalf of user) LABOR SUMMARY EDC: 03/23/2017 00:00 No. Babies in Womb: 1 Attempted: No Labor Anesthesia: None LABOR INFORMATION Reason for Induction: Postterm Oxytocin: N/A Group B Beta Strep: Positive Antibiotics # of Doses: 1 Antibiotics Time of Last Dose: 03/24/2017 18:05 Steroids Given: None Reason Steroids Not Administered: Not Applicable MEMBRANES Membranes Rupture Method: Artificial Rupture of Membranes: 03/24/2017 18:36 Length of Rupture (hr): 0.00 Amniotic Fluid Color: Clear Amniotic Fluid Amount: Small Amniotic Fluid Odor: Normal STAGES OF LABOR Stage 3 hr: 0 Stage 3 min: 1 CSECTION DELIVERY Primary Indication: Repeat Elective CSection Urgency: Elective CSection Incidence: Repeat Labor: No Labor Elective: Elective CSection Incision: Lower Uterine Transverse BABY A INFORMATION Delivery Date/Time: 03/24/2017 18:36 Method of Delivery: Born in Route : No : N/A Forceps: N/A Vacuum Extraction: N/A Shoulder Dystocia : N/A SHOULDER DYSTOCIA BABY A Delivery Date/Time: 03/24/2017 18:36 PRESENTATION/POSITION BABY A Presentation: Cephalic Cephalic Presentation: Vertex Vertex Position: Left Occipital Anterior Breech Presentation: N/A PLACENTA INFORMATION BABY A Placenta Delivery Time : 03/24/2017 18:37 Placenta Method of Delivery: Manual Removal Placenta Status: Delivered SCORES BABY A Heart Rate 1 min: >100 bpm Resp Effort 1 min: Good Cry Reflex Irritability 1 min: Cough/Sneeze/Pulls Away Muscle Tone 1 min: Active Motion Color 1 min: Blue/Pale Resuscitation Effort 1 min: Tactile Stimulation SCORE 1 MIN: 8 Heart Rate 5 min: >100 bpm Resp Effort 5 min: Good Cry Reflex Irritability 5 min: Cough/Sneeze/Pulls Away Muscle Tone 5 min: Active Motion Color 5 min: Body [place], Extremit Blue Resuscitation Effort 5 min: Tactile Stimulation SCORE 5 MIN: 9 INFORMATION BABY A Gestational Age at Delivery: 40.1 Gestational Status: Full Term- 39- 40.6 Weeks Outcome : Liveborn Condition : Stable Sex: Male IDENTIFICATION/MEDS BABY A ID Band Number: [id number] ID Band Location: Right Leg; Left Arm Sensor Applied: Yes Sensor Number: [id number] Sensor Location : Cord Clamp Vitamin K Given : Not Given Erythromycin Given: Not Given WEIGHT/LENGTH BABY A Birthweight (gm): 3740 Infant Weight (lb): 8 Weight (oz): 4 Length (in): 19.50 Length (cm): 49.53 CORD INFORMATION BABY A No. Cord Vessels: 3 Nuchal Cord : N/A Cord Blood Taken: Yes Suction: Mouth; Nose ASSESSMENT BABY A Infant Complications: None Physical Findings at Delivery: Within Normal Limits Respirations: Appears Normal Apprentice/Lineman/ALS Called : Yes Care By: RT Transferred To: Remains with Mother
[2017-03-24] MEDS ORDERED: NA PHOSPHATE/BIPHOS 133 ML ENEMA PR PRN (22:30)
[2017-03-24] MEDS ORDERED: LANOLIN 7 GM TUBE TOP PRN (22:30)
[2017-03-24 23:00] VITALS: BP 139/94; PULSE 65; RESP 18
[2017-03-24 23:49] VITALS: BP 118/79; PULSE 70; RESP 20
[2017-03-24] MEDS: CEFAZOLIN 2 GM/50 ML (PMX) 50 ML IVPB SCH (23:51)
[2017-03-24] MEDS: CLINDAMYCIN 300 MG CAP PO SCH (23:55)
[2017-03-25 04:00] VITALS: BP 111/69; PULSE 95; RESP 18
[2017-03-25] MEDS: CLINDAMYCIN 300 MG CAP PO SCH ×4 (05:50→23:35)
[2017-03-25] MEDS: KETOROLAC 30 MG INJ IV PRN ×3 (05:50→17:35)
[2017-03-25 08:00] VITALS: BP 122/79; PULSE 87; RESP 19
[2017-03-25] MEDS: LACTATED RINGER'S 1,000 ML IV SCH ×2 (08:12→14:26)
[2017-03-25] MEDS: CEFAZOLIN 2 GM/50 ML (PMX) 50 ML IVPB SCH ×2 (08:12→16:14)
[2017-03-25 08:31] LABS: ADD SCAN DIFF NO
[2017-03-25 08:40] LABS: ABNORMAL IP MESSAGE 1; HEMATOCRIT 19.6 % (37.0-47.0); MEAN CORPUSCULAR HEMOGLOBIN 26.9 pg (29.0-33.0); MEAN CORPUSCULAR HGB CONC 33.2 g/dl (32.0-37.0); MEAN PLATELET VOLUME 12.4 fl (7.4-10.4); PLATELET COUNT 227 10^3/UL (140-415); RED BLOOD COUNT 2.42 10^6/ul (4.20-5.40); RED CELL DISTRIBUTION WIDTH 15.3 % (11.5-14.5)
[2017-03-25 08:51] LABS: HEMOGLOBIN 6.5 g/dl (12.0-16.0)
[2017-03-25] MEDS ORDERED: BISACODYL 10 MG SUPP PR ONE (10:00)
[2017-03-25 12:00] VITALS: BP 130/90; PULSE 91; RESP 20
[2017-03-25 12:31] LABS: EOSINOPHILS # 0.1 10^3/ul (0.0-0.5); LYMPHOCYTES # 1.8 10^3/ul (0.8-2.9); MONOCYTE # 0.1 10^3/ul (0.3-0.9); NEUTROPHIL # 7.6 10^3/ul (1.6-7.5)
[2017-03-25 12:33] LABS: POLYCHROMASIA 1+
[2017-03-25 16:00] VITALS: BP 128/94; RESP 18
--- NOTE | 2017-03-25 18:50 | PN ---
Date/Time of Note Date/Time of Note DATE: 03/25/17 TIME: 18:48 Assessment/Plan VTE Prophylaxis VTE Prophylaxis Intervention: ambulation Lines/Catheters IV Catheter Type (from Nrsg): Peripheral IV Assessment/Plan Assessment/Plan POD # 1 S/P C/S will advance diet and ambulate Subjective 24 Hr Interval Summary NO BM passing flatus Constitutional: BM, ambulates, flatus, improved, no complaints, urine output Pain Control: well controlled Exam/Review of Systems Vital Signs Vitals Vital Signs Date Time Temp Pulse Resp B/P Pulse Ox O2 Delivery O2 Flow Rate FiO2 03/25/17 16:00 99.4 18 128/94 Room Air 03/25/17 12:00 91 03/25/17 04:17 97 21 Intake and Output 03/24/17 03/24/17 03/25/17 15:00 23:00 07:00 Intake Total 250 ml 1050 ml Output Total 988 ml 600 ml Balance -738 ml 450 ml Exam Free Text/Dictation abdomen: soft BS + incision: covered Constitutional: alert, oriented, well developed Psych: nl mood/affect, no complaints Head: atraumatic, normocephalic Eyes: EOMI, nl conjunctiva, nl lids, nl sclera ENMT: mucosa pink and moist, nl external ears & nose, nl lips & teeth, nl nasal mucosa & septum Neck: non-tender, supple Respiratory: clear to auscultation, normal air movement Cardiovascular: nl pulses, regular rate and rhythm Gastrointestinal: nl liver, spleen, non-tender, soft Musculoskeletal: nl extremities to inspection, nl gait and stance Extremities: normal pulses Neurological: FOREIGN EXCHANGE POSITION CLERK II-XII intact, nl mental status, nl speech, nl strength Skin: nl turgor, rash or lesions Lymph: nl lymph nodes Results Result Diagram: 03/25/17 0810 JUJU TOMLIN MD Mar 25, 2017 18:50
[2017-03-25] MEDS: OXYCODONE/ACETAMINOPHEN (5/325) TAB PO PRN (19:53)
[2017-03-25 20:00] VITALS: BP 122/88; PULSE 95; RESP 18
[2017-03-25] MEDS: IBUPROFEN 800 MG TAB PO SCH (21:36)
[2017-03-25] MEDS: SENNA/DOCUSATE NA (8.6MG/50MG) TAB PO SCH (21:36)
[2017-03-26] MEDS: OXYCODONE/ACETAMINOPHEN (5/325) TAB PO PRN ×4 (01:34→23:55)
[2017-03-26 04:00] VITALS: BP 125/79; PULSE 95; RESP 18
[2017-03-26] MEDS: IBUPROFEN 800 MG TAB PO SCH ×3 (05:34→21:31)
[2017-03-26] MEDS: CLINDAMYCIN 300 MG CAP PO SCH ×4 (05:34→23:40)
[2017-03-26 07:45] VITALS: BP 128/80; PULSE 99; RESP 18
[2017-03-26] MEDS: SENNA/DOCUSATE NA (8.6MG/50MG) TAB PO SCH ×2 (08:47→20:35)
[2017-03-26 10:47] LABS: WHITE BLOOD COUNT 9.6 10^3/ul (4.8-10.8)
--- NOTE | 2017-03-26 14:44 | DS ---
Date/Time of Note Date/Time of Note Home next day DATE: 03/26/17 TIME: 14:43 Obstetrical Discharge Record Final Diagnosis Final Diagnosis: Term delivered Other Final Diagnosis Status post Vaginal Delivery Obstetrical Delivery: Bilateral Tubal Ligation Section Section: Repeat Condition on Discharge Physical Assessment Voiding: Yes Bowel Movement: Yes Breast: Soft, non-tender, Filling Fundus: Firm Abdomen and Incision: Abdomen is soft bowel sounds present Incision healing well Calf Tenderness: No Patient Condition: Good JUJU TOMLIN MD Mar 26, 2017 14:44
--- NOTE | 2017-03-26 14:46 | DS ---
Date/Time of Note Date/Time of Note DATE: 03/26/17 TIME: 14:44 Discharge Summary Admission/Discharge Info Admit Date/Time Mar 24, 2017 at 14:04 Discharge Date/Time March 27, 2007 Discharge Diagnosis Status post Patient Condition: Good Procedures Repeat Hx of Present Illness 21-year-old female underwent repeat Hospital Course Uncomplicated Home Meds Reported Medications Calcium Carbonate (CALCIUM) 600 Mg Tablet, 600 MG PO DAILY, TAB 03/12/17 Ferrous Sulfate (Iron) 134 Mg Tablet, 134 MG PO DAILY, TAB 03/12/17 Vit W-Ca,Fe,FA(<1 mg) ( Vitamins) 1 Each Tablet, 1 EACH PO DAILY, TAB 01/18/17 Follow-up Plan 3 4 days in clinic for staple removal Primary Care Provider Care Physician JUJU tGz MD Mar 26, 2017 14:46
[2017-03-26 15:00] VITALS: BP 127/82; PULSE 105; RESP 18
[2017-03-26 20:00] VITALS: BP 128/82; PULSE 93; RESP 18
[2017-03-26] MEDS: ACETAMINOPHEN/CODEINE #3 TAB PO PRN (20:35)
[2017-03-27] MEDS: ACETAMINOPHEN/CODEINE #3 TAB PO PRN (03:08)
[2017-03-27 04:00] VITALS: BP 130/66; PULSE 77; RESP 18
[2017-03-27] MEDS: IBUPROFEN 800 MG TAB PO SCH ×2 (05:47→13:39)
[2017-03-27] MEDS: CLINDAMYCIN 300 MG CAP PO SCH ×3 (05:47→17:32)
[2017-03-27 07:55] VITALS: BP 122/71; PULSE 80; RESP 19
[2017-03-27] MEDS: SENNA/DOCUSATE NA (8.6MG/50MG) TAB PO SCH (08:27)
[2017-03-27] MEDS ORDERED: DIPHTH/TET/ACEL PERTUSS (ADULT) 0.5 ML VIAL IM* ONE (09:00)
[2017-03-27] MEDS ORDERED: MEASLES,MUMPS,RUBELLA VACCINE INJ SC* ONE (09:00)
[2017-03-27] MEDS: OXYCODONE/ACETAMINOPHEN (5/325) TAB PO PRN ×2 (10:54→14:47)
[2017-03-27 16:00] VITALS: BP 120/72; RESP 19
--- NOTE | 2017-03-27 17:44 | PD.PPDC ---
PLUMBER APPRENTICE Discharge Instruction Provider Information Physician Information 27 y/o female had repeat C/S Diagnosis Final Diagnosis: S/P C/S Condition Patient Condition: Good Diet Diet: Resume Regular Diet Activity/Restrictions Activity: January Shower Restrictions: No Exercising No Lifting Nothing in the Vagina Return to Work or School: Jun 01, 2017 Wound/Drain Care Instructions Wound/Drain Care Instructions: Keep clean and dry Follow-up Follow-up with Physician: 3, 4, Day/Days (in clinic for staple removal ) Return to clinic for TRUER PINION [employer] WHEEL Instructions: Fever greater than 101 Chills OB Instructions: Breast Tenderness Depression Surgical Instructions: Incisional Drainage Incisional Redness JUJU TOMLIN MD Mar 27, 2017 17:44
[2017-03-27] MEDS ORDERED: Oxycodone/Acetamin (5/325) PO (17:45)
[2017-03-27] MEDS ORDERED: IBUP800T25 PO (17:45)
== END 2017-03-27 21:15 | disposition home or self-care (01) | DRG 766 ==
LOC: EDSTATUS 13:50 → OBT 03-24 13:24 → L-D 03-24 13:25 → PP1 03-24 22:26
PROVIDERS: ADMIT Obstetrics & Gynecology; ATTEND Obstetrics & Gynecology
PROC: 10D00Z1 Extraction of Products of Conception, Low, Open Approach (ICD-10-PCS; principal; 2017-03-24 18:30)
DX: O34.211 Maternal care for low transverse scar from previous cesarean delivery (principal); O48.0 Post-term pregnancy; Z3A.40 40 weeks gestation of pregnancy; Z37.0 Single live birth
CPT/HCPCS: 85025; 85610; 85730; 86592; 86850; 86900; 86901; 87340; 90715; 94760; J0690; J1100; J1885; J2270; J2274; J2370; J2590; J2765; J3010; J7120